=== PATIENT | female | born 1940 | race Caucasian/White ===

== ENCOUNTER 2017-07-15 16:34 | Outpatient (CLI) | payer OTHER | END 2017-07-15 19:48 | disposition home or self-care (01) | LOC: SRD 16:34 | PROVIDERS: ATTEND Internal Medicine | DX: M54.9 Dorsalgia, unspecified (principal); M25.559 Pain in unspecified hip; Z98.890 Other specified postprocedural states | CPT/HCPCS: 72110; 73521 ==

== ENCOUNTER 2018-09-06 12:03 | Outpatient (CLI) | payer OTHER | END 2018-09-07 21:22 | disposition home or self-care (01) | LOC: SRD 12:03 | PROVIDERS: ATTEND Internal Medicine | DX: M19.012 Primary osteoarthritis, left shoulder (principal) | CPT/HCPCS: 73030 ==

== ENCOUNTER 2021-02-19 10:23 | Emergency (ER) | payer BC, SELFPAY ==
[~2021-02-19] VITALS: Ht 160 cm; Wt 56.7 kg
[~2021-02-19 10:23] MED LIST: CARB1TAB21 PO; HYDR-3919 PO; LOSA100T3 PO; OXYC-128 PO
--- NOTE | 2021-02-19 10:45 | NUR ---
Patient to ER bed 8 to gown for evaluation. Side rails up. Report given to Sammie PATEL.
--- NOTE | 2021-02-19 10:47 | NUR ---
PT BIB AFTER FALLING THIS AM UNWITNESSED IN THE BATHROOM, PT HIT BACK OF HEAD, LAC TO BACK OF HEAD WITH DRIED BLOOD. NO ACTIVE BLEEDING UPON ARRIVAL. PT HAS A HX OF PARKINSON'S AND USES A WALKER AT HOME. PT IS AAOX3, V/S STABLE UPON ARRIVAL
[2021-02-19 11:03] VITALS: BP_SYST 141
--- NOTE | 2021-02-19 11:05 | NUR ---
ER DR. GRANADOS AT THE BEDSIDE EXAMINING PT
--- NOTE | 2021-02-19 11:17 | NUR ---
Patient transported to radiology via GURNEY, accompanied by STAFF.
--- NOTE | 2021-02-19 11:22 | NUR ---
Returned from radiology.
--- NOTE | 2021-02-19 12:30 | NUR ---
Patient given written and verbal discharge instructions and verbalizes understanding. ER MD discussed with patient the results and treatment provided. Patient in stable condition. ID arm band removed. NO Rx given. Patient educated on pain management and to follow up with PMD. Pain Scale 0/10. Opportunity for questions provided and answered. Medication side effect fact sheet provided.
[2021-02-19 12:53] VITALS: BP_SYST 141
== END 2021-02-19 12:30 | disposition home or self-care (01) ==
LOC: SED 10:23
DX: S01.01XA Laceration without foreign body of scalp, initial encounter (principal); Z79.899 Other long term (current) drug therapy; W18.39XA Other fall on same level, initial encounter; Y93.89 Activity, other specified; Y92.89 Other specified places as the place of occurrence of the external cause; Y99.8 Other external cause status
CPT/HCPCS: 70450-TC; 76376; 99284